=== PATIENT | male | born 1995 | race Hispanic/Latino ===

== ENCOUNTER 2020-10-01 09:22 | Emergency (ER) | payer OTHER ==
[~2020-10-01] VITALS: Ht 188 cm; Wt 137.5 kg
[2020-10-01 09:22] VITALS: BP 177/101
[2020-10-01] MEDS ORDERED: OMEP-218 PO (09:30)
[2020-10-01] MEDS ORDERED: FLON27.5 NARES (10:48)
[2020-10-01] MEDS ORDERED: PSEU30TA88 PO (10:48)
== END 2020-10-01 10:55 | disposition home or self-care (01) ==
LOC: M ED 09:22
DX: J02.9 Acute pharyngitis, unspecified (principal); R09.81 Nasal congestion; R05 Cough; K21.9 Gastro-esophageal reflux disease without esophagitis; I10 Essential (primary) hypertension